=== PATIENT | female | born 1970 | race Caucasian/White ===

== ENCOUNTER 2018-02-01 23:58 | Emergency (ER) | END 2018-02-02 02:43 | disposition home or self-care (01) ==

== ENCOUNTER 2018-12-09 15:12 | Emergency (ER) | payer OTHER ==
[~2018-12-09] VITALS: Ht 167.6 cm; Wt 55.1 kg
[2018-12-09 15:38] VITALS: Ht 167.6 cm; Wt 55.1 kg
[2018-12-09] MEDS ORDERED: IBUP800T48 PO (17:28)
[2018-12-09] MEDS ORDERED: LORA1TAB PO (17:28)
--- NOTE | 2018-12-09 17:33 | ERD ---
ER Documentation Chief Complaint Chief Complaint Patient complains of left sided numbness since 2 weeks HPI 48-year-old female presents to the emergency room complaining of left-sided numbness. She states that since July she is having episodes of left shoulder pain and burning with paresthesia to the left side of her body occasionally to the bilateral face without headache nausea or vomiting. No chest pain or exertional symptoms. She states that is usually occurring when she is stressed or having her menstrual period. Patient denies any fevers or chills pleuritic pain cough or congestion. No headache slurred speech or motor weakness. ROS All systems reviewed and are negative except as per history of present illness. Medications Home Meds Active Scripts Lorazepam* (Lorazepam*) 1 Mg Tablet, 1 MG PO Q8H PRN for ANXIETY, #10 TAB Prov:IVETTE BAILEY MD 12/09/18 Ibuprofen* (Motrin*) 800 Mg Tab, 800 MG PO Q6H PRN for PAIN AND OR ELEVATED TEMP, #30 TAB Prov:IVETTE BAILEY MD 12/09/18 Allergies Allergies: Coded Allergies: No Known Allergy (Unverified , 12/09/18) PMhx/Soc History of Surgery: Yes (cyst) Anesthesia Reaction: No Hx Neurological Disorder: No Hx Respiratory Disorders: No Hx Cardiac Disorders: No Hx Psychiatric Problems: No Hx Miscellaneous Medical Probl: Yes (low BP) Hx Alcohol Use: No Hx Substance Use: No Hx Tobacco Use: No Smoking Status: Never smoker FmHx Family History: No diabetes Physical Exam Vitals Vital Signs Date Temp Pulse Resp B/P (MAP) Pulse Ox O2 O2 Flow FiO2 Time Delivery Rate 12/09/18 98.2 67 20 123/65 98 15:38 (84) Physical Exam General: Well developed, well nourished, no acute distress Head: Normocephalic, atraumatic. Eyes: Pupils equally reactive, EOM intact ENT: Moist mucous membranes Neck: Supple, no lymphadenopathy Respiratory: Lungs clear bilaterally, no distress Cardiovascular: RRR, no murmurs, rubs, or gallops Abdominal: Soft, non-tender, non-distended, no peritoneal signs : Deferred MSK: No edema, no unilateral swelling, 5/5 strength Neurologic: Alert and oriented, moving all extremities, normal speech, no focal weakness, no cerebellar signs, no pronator drift, normal rapid alternating movements, no ataxia, NIHSS of 0 Skin: No rash Psych: Normal mood Result Diagram: 12/09/18 1621 12/09/18 1621 Results 24 hrs Laboratory Tests Test 12/09/18 16:21 White Blood Count 9.6 10^3/ul Red Blood Count 4.01 10^6/ul Hemoglobin 13.1 g/dl Hematocrit 38.0 % Mean Corpuscular Volume 94.8 fl Mean Corpuscular Hemoglobin 32.7 pg Mean Corpuscular Hemoglobin Concent 34.5 g/dl Red Cell Distribution Width 11.8 % Platelet Count 308 10^3/UL Mean Platelet Volume 9.6 fl Immature Granulocytes % 0.500 % Neutrophils % 75.7 % Lymphocytes % 18.1 % Monocytes % 4.9 % Eosinophils % 0.6 % Basophils % 0.2 % Nucleated Red Blood Cells % 0.0 /100WBC Immature Granulocytes # 0.050 10^3/ul Neutrophils # 7.2 10^3/ul Lymphocytes # 1.7 10^3/ul Monocytes # 0.5 10^3/ul Eosinophils # 0.1 10^3/ul Basophils # 0.0 10^3/ul Nucleated Red Blood Cells # 0.0 10^3/ul Sodium Level 141 mmol/L Potassium Level 3.6 mmol/L Chloride Level 104 mmol/L Carbon Dioxide Level 26 mmol/L Anion Gap 11 Blood Urea Nitrogen 6 mg/dl Creatinine 0.58 mg/dl Est Glomerular Filtrat Rate mL/min > 60 mL/min Glucose Level 107 mg/dl Calcium Level 9.4 mg/dl Troponin I < 0.012 ng/ml Procedures/[facility] EKG, MONITORS, & DIAGNOSTIC IMAGING: Chest x-ray: I reviewed and interpreted a 1 view of the chest Mediastinum: No enlargement Cardiac silhouette: No cardiomegaly Airspace: Clear lung genao bilaterally without evidence of pneumothorax Bones: No evidence of fracture EKG: I reviewed and interpreted a 12-lead EKG. Rhythm: Normal sinus rhythm ST Changes: No contiguous ST segment elevations T waves: No contiguous T wave inversions Impression: No evidence of acute cardiac ischemia LAB INTERPRETATION: I reviewed the laboratory testing and it shows no evidence of acute process MEDICAL DECISION MAKING: The patient has nonspecific left-sided body paresthesias that are nonspecific and not acute. Her clinical exam and presentation are not consistent with acute stroke syndrome. While the patient does have a majority of the left side having symptoms she does have bilateral facial and occasional right upper extremity issues. I do not believe this is consistent with a stroke syndrome given the chronicity of symptoms. She has no headache and a nonfocal exam I do not believe CT of the brain is necessary. Low concern for cardiac etiology or acute coronary syndrome. The patient is very anxious and states that these are generally associated with anxiety. This is the likely etiology versus nonspecific paresthesia. Basic blood work would be appropriate. Patient is asking for me to check her heart. EKG and troponin will be obtained. ER COURSE: * Laboratory testing and diagnostic imaging are negative. At this point the patient can be safely discharged home. With a subacute nature she can follow- up with a primary care physician. A short trial benzodiazepines may be reasonable. CONSULTATION: None DISPOSITION PLAN: The patient does not have an identifiable emergent medical condition that warrants inpatient hospitalization at this time. The patient is deemed safe for discharge with outpatient follow-up. We discussed follow up with the patient's primary care doctor within 24 to 48 hours as needed. We also discussed return to the emergency room for worsening symptoms or worsening condition. Outpatient referral: None required Discharge Medications: Motrin, Ativan Departure Diagnosis: Primary Impression: Paresthesia Condition: Stable Patient Instructions: Paraesthesias Referrals: [facility] YOU HAVE RECEIVED A MEDICAL SCREENING EXAM AND THE RESULTS INDICATE THAT YOU DO NOT HAVE A CONDITION THAT REQUIRES URGENT TREATMENT IN THE EMERGENCY DEPARTMENT. FURTHER EVALUATION AND TREATMENT OF YOUR CONDITION CAN WAIT UNTIL YOU ARE SEEN IN YOUR DOCTORS OFFICE WITHIN THE NEXT 1-2 DAYS. IT IS YOUR RESPONSIBILITY TO MAKE AN APPOINTMENT FOR FOLOW-UP CARE. IF YOU HAVE A PRIMARY DOCTOR --you should call your primary doctor and schedule an appointment IF YOU DO NOT HAVE A PRIMARY DOCTOR YOU CAN CALL OUR PHYSICIAN REFERRAL HOTLINE AT IF YOU CAN NOT AFFORD TO SEE A PHYSICIAN YOU CAN CHOSE FROM THE FOLLOWING [facility] [address] [facility] [address] [facility]. [facility] [address] [facility] [address] [facility] [address] [facility]. [facility] [address] [facility]. [facility] YOU HAVE RECEIVED A MEDICAL SCREENING EXAM AND THE RESULTS INDICATE THAT YOU DO NOT HAVE A CONDITION THAT REQUIRES URGENT TREATMENT IN THE EMERGENCY DEPARTMENT. FURTHER EVALUATION AND TREATMENT OF YOUR CONDITION CAN WAIT UNTIL YOU ARE SEEN IN YOUR DOCTORS OFFICE WITHIN THE NEXT 1-2 DAYS. IT IS YOUR RESPONSIBILITY TO MAKE AN APPOINTMENT FOR FOLOW-UP CARE. IF YOU HAVE A PRIMARY DOCTOR --you should call your primary doctor and schedule and appointment IF YOU DO NOT HAVE A PRIMARY DOCTOR YOU CAN CALL OUR PHYSICIAN REFERRAL HOTLINE AT . IF YOU CAN NOT AFFORD TO SEE A PHYSICIAN YOU CAN CHOSE FROM THE FOLLOWING [facility] INSTITUTIONS: [facility] [address] [place] [address] [facility] [address] [place], [place] [id number] [place] [address] + [facility] [address] [place] [address] Additional Instructions: Call your primary care doctor TOMORROW for an appointment during the next 1 WEEK.Tell the stenographer secretary that you were referred from this facility.See the doctor sooner or return here if your condition worsens before your appointment time. IVETTE BAILEY MD Dec 09, 2018 17:33
[2018-12-09 17:57] VITALS: BP 123/76; PULSE 66; RESP 18
== END 2018-12-09 17:57 | disposition home or self-care (01) ==
LOC: E/R 15:12
DX: R20.2 Paresthesia of skin (principal); R07.9 Chest pain, unspecified
CPT/HCPCS: 36415; 71045; 80048; 81025; 84484; 85025; 93005; Z7502